=== PATIENT | female | born 1990 | race Hispanic/Latino ===

== ENCOUNTER 2017-06-09 08:28 | Day surgery (SDC) | payer OTHER ==
[2017-06-09 08:54] VITALS: BP 137/62; TEMP 98.2; BMI 39.6
[2017-06-09] MEDS ORDERED: Acetaminophen 500 MG TAB PO PRN (09:52)
[2017-06-09 10:25] LABS: Bilirubin Negative (Negative); Blood, Urine Negative (Negative); Clarity CLEAR (Clear); Glucose, Urine (Dipstick) Negative (Negative); Leukocyte Small (Negative); Nitrite Negative (Negative); Protein, Urine (Dipstick) Negative (Neg-Trace); Specific Gravity, Urine 1.012 (1.002-1.036); pH, Urine 6.5 (5.0-9.0)
[2017-06-09 10:27] LABS: Bacteria/HPF 1+ HPF (None Seen); Hyaline Casts/LPF 4-6 HYALINE CAST LPF (0-3 Hyaline); Pathc Cast-AUWi Flag 0.94 (0-2.49)
== END 2017-06-09 11:02 | disposition home or self-care (01) ==
LOC: L&D/OP 08:28
PROVIDERS: ATTEND Obstetrics & Gynecology
DX: O99.89 Other specified diseases and conditions complicating pregnancy, childbirth and the puerperium (principal); R10.30 Lower abdominal pain, unspecified; Z3A.35 35 weeks gestation of pregnancy; Z79.899 Other long term (current) drug therapy; Z91.018 Allergy to other foods
CPT/HCPCS: 81003; 81015; 87086; 99285

== ENCOUNTER 2017-07-09 14:59 | Inpatient (IN) | payer MEDICAID, OTHER, SELFPAY ==
[2017-07-09] MEDS ORDERED: LR / Pitocin 40 units/1000 ml 1,000 ML ONE (15:21)
[2017-07-09] MEDS ORDERED: Lidocaine 1% (PF) 30 ML VIAL ONE (15:21)
[2017-07-09] MEDS ORDERED: Promethazine HCl 25 MG/ML VIAL IM PRN (15:29)
[2017-07-09] MEDS ORDERED: Ondansetron HCl/PF 4 MG/2 ML Vial IVP PRN (15:29)
[2017-07-09] MEDS ORDERED: Carboprost 250 MCG/ML AMP IM PRN (15:29)
[2017-07-09] MEDS ORDERED: Acetaminophen 500 MG TAB PO PRN (15:29)
[2017-07-09] MEDS ORDERED: HYDROcodone/Acetaminophen 5/325 mg Tablet PO PRN (15:29)
[2017-07-09] MEDS ORDERED: Misoprostol 200 MCG TAB PR PRN (15:29)
[2017-07-09] MEDS ORDERED: LR / Pitocin 40 units/1000 ml 1,000 ML IV PRN (15:29)
[2017-07-09] MEDS ORDERED: Lidocaine 1% (PF) 30 ML VIAL SC PRN (15:29)
[2017-07-09] MEDS ORDERED: Ibuprofen 800 MG TAB PO PRN (15:29)
[2017-07-09] MEDS ORDERED: Methylergonovine 0.2 MG/ML VIAL IM PRN (15:29)
--- NOTE | 2017-07-09 15:42 | PDOC.LDHP ---
Labor and Delivery H&P Chief complaint: contractions, abdominal pain HPI: Pt presented to L&D for lower abdominal pain and contractions lasting 2-3 hours. Denies vaginal bleeding or loss of fluid. Current gestational age (weeks): 40 (40.1) Due date: 07/08/17 Dating criteria: first trimester ultrasound Grav: 2 Para: 1 OB History Details: 1 prior term on 09/28/15 with periurethral injury Current complications: other (anemia of now resolved) Abnormal US findings: No (anterior uterine fibroid) Past Medical History: none Current medications: pre-lis vitamins Previous surgical history: none Allergies/Adverse Reactions: Allergies Allergy/AdvReac Type Severity Reaction Status Date / Time guava Allergy Verified 07/09/17 16:31 Social history: none - Physical Exam Vital signs reviewed and normal: yes General: NAD, breathing through contractions Heart: RRR Lungs: nonlabored breathing Abdomen: NTTP Extremeties: trace edema FHT: category 1, variability present [place] contractions every: 2 min - Vaginal Exam cm dilated: 9 Effacement: 100% Station: 2+ - OB Labs Blood type: O RH: positive Antibody Screen: negative HIV: negative RPR: negative HEPSAg: negative 1 hour GCT: negative GBS: negative Urine drug screen: not done Rubella: immune Additional Labs: gonorrhea neg, chlamydia neg - Assessment L&D Assessment: term patient in labor - Plan Plan: admit to L&D
[2017-07-09 15:44] LABS: Hemoglobin 12.1 g/dL (12.0-16.0); Mean Corpuscular HGB CONC 33.5 g/dL (32.0-36.0); Mean Corpuscular Hemoglobin 31.6 pg (27.0-31.0); Mean Corpuscular Volume 94.3 fl (81.0-99.0); Mean Platelet Volume 8.1 fL (7.4-10.4); Platelet Count 289 thou/uL (130-400); RBC Distribution Width 12.5 % (11.5-14.5); Red Blood Cell (RBC) Count 3.82 mill/uL (4.20-5.40); White Blood Cell (WBC) Count 17.4 thou/uL (4.8-10.8)
[2017-07-09 16:11] LABS: HBSAg Index 0.16 S/CO (0-0.99); Hep B Surf Ag Non-Reactive S/CO (NonReactive); Syphilis Antibody Nonreactive (Nonreactive); Syphilis Antibody Index 0.03 S/CO (<1.00 Non-Reactive)
--- NOTE | 2017-07-09 16:16 | PDOC.OPDEL ---
OB Operative/Delivery Note Delivery Dr/Surgeon: Dr. Conroy, Dr. Queen Assist: Attending: Dr. Sylvester Pre-Delivery Diagnosis: active labor Procedure/Post Delivery Dx: spontaneous vaginal delivery Weeks gestation: 40 Anesthesia: none - Findings A Sex: male - 1 min: 9 - 5 min: 9 - Additional Findings/Plan Placenta delivered: spontaneous Repaired Obstetrical Laceration: none findings: other Estimated blood loss: 150 Compilations/Other Findings: Pre-op Diagnosis: 1. Term intrauterine in labor Post-op Diagnosis: 1. Term intrauterine , delivered Indications: A 26y/o female presents in active labor. Delivery Note: This is 26yo F -->2@ 40wks who delivered a viable M at 1554. Following an uneventful antepartum course, a vigorous male was delivered over an intact perineum in the (occipitoanterior) position. Anterior Shoulder and then remainder of the body delivered. No nuchal cord. Terminal meconium present. The head was held down and mouth and nares were bulb suctioned. Cord clamped and cut and cord blood collected. Placenta delivered intact with a 3 vessel cord noted. Fundal massage was performed and the fundus was firm. The cervix and vagina were inspected and found to be free of lacerations. went to nursery in good condition for routine care. Apgars were 9/9 at 1 & 5 minutes, respectively. Patient tolerated delivery well and went to after routine recovery/care. Post delivery plan: routine recovery
[2017-07-09 16:21] VITALS: BMI 37.7
[2017-07-09] MEDS ORDERED: Milk Of Magnesia 30 ML UDCUP PO PRN (18:42)
[2017-07-09] MEDS ORDERED: Adacel (T-DAP) 0.5 ML VIAL IM ONE (18:42)
[2017-07-09] MEDS ORDERED: Lanolin Ointment 7 GM TUBE TOP PRN (18:42)
[2017-07-09] MEDS ORDERED: Bisacodyl 10 MG SUPP PR PRN (18:42)
[2017-07-09] MEDS: Docusate Calcium (SURFAK) 240 MG CAP PO SCH (21:15)
[2017-07-10 05:56] LABS: Hemoglobin 10.4 g/dL (12.0-16.0); Mean Corpuscular HGB CONC 32.9 g/dL (32.0-36.0); Mean Corpuscular Hemoglobin 31.4 pg (27.0-31.0); Mean Corpuscular Volume 95.3 fl (81.0-99.0); Mean Platelet Volume 8.1 fL (7.4-10.4); Platelet Count 259 thou/uL (130-400); RBC Distribution Width 12.4 % (11.5-14.5); Red Blood Cell (RBC) Count 3.32 mill/uL (4.20-5.40); White Blood Cell (WBC) Count 16.8 thou/uL (4.8-10.8)
[2017-07-10 08:38] VITALS: BP 113/56; TEMP 98.4
[2017-07-10] MEDS: Ferrous Sulfate 325 MG TAB PO SCH ×2 (09:16→18:47)
[2017-07-10] MEDS: Docusate Calcium (SURFAK) 240 MG CAP PO SCH (09:18)
--- NOTE | 2017-07-10 10:36 | PDOC.PP ---
Post Progress Note Post Day #: 1 Subjective: 26 yo G2 now P2 pp day 1, without complication, normal amount of lochia, passing flatus, urinating and denies fever, chills, cp, sob, nvdc and abd pain. PO intake tolerated: yes Flatus: yes Ambulation: yes Vital Signs (12 hours) Temp Pulse Resp BP 07/10/17 08:00 98.4 F 85 16 113/56 L 07/10/17 04:00 98.8 F 84 18 121/64 07/10/17 00:32 98.6 F 83 18 112/64 Weight Weight 109.316 kg - Physical Examination General: NAD Cardiovascular: no m/r/g, RRR Respiratory: clear to auscultation bilaterally, non-labored breathing Abdominal: + bowel sounds, lochia, no distention, appropriately TTP Neurological: no gross focal deficits Psychiatric: normal affect Result Diagrams: 07/10/17 05:16 Additional Labs: Post Labs Blood Type O POSITIVE 07/09/17 15:25 Hep Bs Antigen Non-Reactive S/CO (NonReactive) 07/09/17 15:25 (1) Spontaneous vaginal delivery Code(s): O80 - ENCOUNTER FOR FULL-TERM UNCOMPLICATED DELIVERY Status: Acute Comment: Doing well, no complaints or issues. Plan on DC home today pending babys bili @ 24 hours Mother without questions or concerns <Jose Alfredo Metcalf - Last Filed: 07/10/17 10:34> Vital Signs (12 hours) Temp Pulse Resp BP 07/10/17 08:00 98.4 F 85 16 113/56 L 07/10/17 04:00 98.8 F 84 18 121/64 07/10/17 00:32 98.6 F 83 18 112/64 Weight Weight 109.316 kg Result Diagrams: 07/10/17 05:16 Additional Labs: Post Labs Blood Type O POSITIVE 07/09/17 15:25 Hep Bs Antigen Non-Reactive S/CO (NonReactive) 07/09/17 15:25 <Anthony Ludwig - Last Filed: 07/10/17 11:49> Attending Addendum - Attending Addendum I personally evaluated the patient and discussed the management with Dr. Metcalf and team. I agree with and repeated the History, Examination, Assessment and Plan documented above with any addition or exceptions noted below. Pt doing well, no complaints, would like to go home. Paperwork signed, follow up in 2 weeks, likely Nexplanon for contraception but wants to think about it some more. <Anthony Ludwig - Last Filed: 07/10/17 11:49>
== END 2017-07-10 18:30 | disposition home or self-care (01) | DRG 775 ==
LOC: L&D/OP 14:59 → L&D 15:33 → 3SW 18:37
PROVIDERS: ADMIT Emergency Medicine; ATTEND Emergency Medicine
PROC: 10E0XZZ Delivery of Products of Conception, External Approach (ICD-10-PCS; principal; 2017-07-09)
DX: O99.214 Obesity complicating childbirth (principal); E66.9 Obesity, unspecified; Z68.36 Body mass index [BMI] 36.0-36.9, adult; Z3A.40 40 weeks gestation of pregnancy; Z37.0 Single live birth; O99.013 Anemia complicating pregnancy, third trimester
CPT/HCPCS: 36415; 85027; 86780; 87340; 99285; J2001

== ENCOUNTER 2020-03-24 22:55 | Emergency (ER) | payer MEDICAID, OTHER, SELFPAY ==
[2020-03-24 23:32] LABS: #Basophils 0.1 thou/uL (0.0-0.2); #Eosinphils 0.2 thou/uL (0.0-0.7); #Lymphocytes 1.3 thou/uL (1.20-3.40); #Monocytes 0.7 thou/uL (0.11-0.59); %Basophils 0.5 % (0.0-1.0); %Eosinophils 1.6 % (0.0-10.0); %Lymphocytes 11.8 % (21.0-51.0); %Monocytes 6.1 % (0.0-10.0); %Neutrophils 79.9 % (42.0-75.0); Mean Corpuscular HGB CONC 33.5 g/dL (32.0-36.0); Mean Corpuscular Hemoglobin 31.2 pg (27.0-31.0); Mean Corpuscular Volume 93.1 fL (78.0-98.0); Mean Platelet Volume 7.6 fL (7.4-10.4); Platelet Count 306 thou/uL (130-400); RBC Distribution Width 12.6 % (11.5-14.5); Red Blood Cell (RBC) Count 3.85 mill/uL (4.20-5.40); White Blood Cell (WBC) Count 11.2 thou/uL (4.8-10.8)
== END 2020-03-25 01:06 | disposition home or self-care (01) ==
LOC: ERS 22:55
DX: O20.0 Threatened abortion (principal); Z3A.09 9 weeks gestation of pregnancy
CPT/HCPCS: 36415; 84702; 85025; 86900; 86901; 99284

== ENCOUNTER 2023-12-13 07:13 | Emergency (ER) | payer MEDICAID, OTHER ==
[2023-12-13 09:57] LABS: #Basophils 0.04 10x3/uL (0.0-0.2); %Basophils 0.7 % (0.0-1.0); %Eosinophils 1.3 % (0.0-10.0); %Lymphocytes 25.1 % (21.0-51.0); %Neutrophils 63.5 % (42.0-75.0); Hematocrit 31.9 % (36.0-47.0); Hemoglobin 10.3 g/dL (12.0-16.0); Mean Corpuscular HGB CONC 32.3 g/dL (32.0-36.0); Mean Corpuscular Hemoglobin 29.7 pg (27.0-31.0); Mean Corpuscular Volume 91.9 fL (78.0-98.0); Mean Platelet Volume 9.5 fL (7.4-10.4); Platelet Count 327 10x3/uL (130-400); RBC Distribution Width 14.4 % (11.5-14.5); Red Blood Cell (RBC) Count 3.47 mill/uL (4.20-5.40)
[2023-12-13 10:20] LABS: Bacteria/HPF 2+ HPF (None Seen); Bilirubin Negative (Negative); Blood, Urine 2+ (Negative); Clarity Clear (Clear); Glucose, Urine (Dipstick) Normal (Negative); Ketone, Urine Negative (Negative); Leukocyte Negative Leu/uL (Negative); Nitrite Negative (Negative); Protein, Urine (Dipstick) Negative (Neg-Trace); RBC/HPF 0-3 HPF (0-3); Specific Gravity, Urine 1.007 (1.002-1.036); Squamous Epithelial 0-3 HPF (0-3); Urobilinogen Normal mg/dL (Less than 2); WBC/HPF 0-3 HPF (0-3); pH, Urine 7.5 (5.0-9.0)
== END 2023-12-13 12:02 | disposition home or self-care (01) ==
LOC: ERS 07:13
DX: O20.0 Threatened abortion (principal); Z3A.10 10 weeks gestation of pregnancy
CPT/HCPCS: 76801; 81001; 84702; 85025; 86850; 86900; 86901

== ENCOUNTER 2023-12-16 15:15 | Emergency (ER) | payer OTHER | END 2023-12-16 19:00 | disposition home or self-care (01) | LOC: ERS 15:15 | DX: O20.9 Hemorrhage in early pregnancy, unspecified (principal); Z3A.10 10 weeks gestation of pregnancy | CPT/HCPCS: 36415; 76801; 84702 ==